=== PATIENT | female | born 1955 | race African-American/Black ===

== ENCOUNTER → 2016-04-14 | Day surgery (SDC) | payer MEDICAID ==
[~2016-04-14] VITALS: Ht 170.2 cm; Wt 67.0 kg
[~2016-04-14] MED LIST: ACETAMINOPHEN 1000 MG/100 ML VIAL IV ONE; ALEN1TAB48 PO; DEXAMETHASONE SOD PHOS 4 MG/ML VIAL ONE; FAMOTIDINE 20 MG/2 ML VIAL ONE; FORT600S SQ; LOSA100T3 PO; MIDAZOLAM HCL 2 MG/2 ML VIAL ONE; NIFE30TA8; NIFE30TA8 PO; ONDANSETRON HCL 4 MG/2 ML VIAL IV PUSH PRN; ONDANSETRON HCL 4 MG/2 ML VIAL ONE; PERC5TAB12 PO; PRAV40TA2 PO; PROPOFOL 200 MG/20 ML AMP IV ONE; TRAM50TA PO; ePHEDrine/NS 25 MG/5 ML SYR IV ONE; fentaNYL CITRATE 250 MCG/5 ML AMP ONE; oxyCODONE/ACETAMINOPHEN 5 MG/325 MG TAB PO PRN
[2016-04-14 06:35] VITALS: BP 154/86; PULSE 60; RESP 16; TEMP 97.6; O2SAT 99
[2016-04-14 07:25] LABS: HEMATOCRIT 36.8 % (35.0-46.0); HEMO FLAGS DIFF FINAL; MEAN CELL VOLUME 90.3 FL (80.0-100.0); MEAN CORPUSCULAR HGB CONC 33.2 % (32.0-36.0); PLATELET COUNT 135 TH/MM3 (150-450); RED BLOOD COUNT 4.07 MIL/MM3 (4.00-5.30); RED CELL DISTRIBUTION WIDTH 14.4 % (11.6-17.2); WHITE BLOOD COUNT 9.6 TH/MM3 (4.0-11.0)
[2016-04-14 07:26] LABS: AUTOMATED NEUTROPHIL # 5.5 TH/MM3 (1.8-7.7); BASOPHIL # 0.1 TH/MM3 (0-0.2); BASOPHIL % 0.6 % (0.0-2.0); EOSINOPHIL # 0.3 TH/MM3 (0-0.4); EOSINOPHIL % 2.9 % (0.0-4.0); LYMPH % 28.9 % (9.0-44.0); LYMPHOCYTE # 2.8 TH/MM3 (1.0-4.8); MONO % 10.3 % (0.0-8.0); NEUT % 57.3 % (16.0-70.0)
--- NOTE | 2016-04-14 08:14 | RADRPT ---
EXAM DATE/TIME: 04/14/2016 07:07 [facility] COMPARISON: No previous studies available for comparison. INDICATIONS: Pre-op left kidney stones. MEDICAL HISTORY: None. SURGICAL HISTORY: None. ENCOUNTER: Initial ACUITY: 1 day PAIN SCORE: 0/10 LOCATION: Left Abdomen. FINDINGS: There are at least two radiopaque densities overlying the expected region of the lower pole of the le ft kidney. The largest measures 10 mm consistent with probable non-obstructing left renal calculi. There is no bowel obstruction, ileus or perforation. No free intraperitoneal air is noted. Scoliosi s of the lumbar spine is noted. CONCLUSION: 1. At least two lower pole left renal calculi with the largest measuring 10 mm. 2. No bowel obstruction, ileus or perforation. 3. Scoliosis of the lumbar spine. Srikanth Menjivar MD on April 14, 2016 at 8:07 Board Certified Radiologist. This report was verified electronically.
--- NOTE | 2016-04-14 13:08 | HHI.PR ---
Immediate Post Op Note Procedure Date: Apr 14, 2016 Pre Op Diagnosis: Left lower pole renal calculi Post Op Diagnosis: Same Surgeon: Schuyler Dykes Clinical Review Nurse(s): None Procedure: Extracorporeal shockwave lithotripsy of left lower pole renal calculi Findings: Left lower pole renal calculi Additional Information: Indication for procedure: Case of a pleasant 60-year-old female with 2 left lower pole renal calculi measuring approximately 1 cm and 6 mm respectively seen on CT scanning. Patient presents today to undergo definitive management with shockwave lithotripsy. Procedure in detail: Patient was brought to the operating room suite and placed supine on the lithotripsy table. She was next placed under general anesthesia. After the appropriate timeout was undertaken, the patient's left lower pole renal calculi were localized with fluoroscopy. She then underwent shockwave lithotripsy utilizing the Wade Piezolith 3000 device. The patient received a total of 3000 shocks with a maximum power level of 20. At conclusion of the procedure the stones appeared somewhat outside sales manager in intensity consistent with at least partial fragmentation. The patient tolerated the procedure well and was transferred to the PACU in satisfactory condition. Anesthesia: General Drains: None Fluids: refer to anesthesia record Patient to: PACU Patient Condition: Good Date/Time of Procedure: SEE SURGICAL CARE RECORD Schuyler Dykes MD Apr 14, 2016 13:08
[2016-04-14 14:56] VITALS: BP 125/74; PULSE 56; RESP 20; TEMP 96.6; O2SAT 99
--- NOTE | 2016-04-14 18:33 | EKG ---
Date Performed: 04/14/2016 Time Performed: 06:59:40 PTAGE: 60 years EKG: SINUS BRADYCARDIA POSSIBLE LEFT ATRIAL ENLARGEMENT POSSIBLE LEFT VENTRICULAR HYPERTROPHY NO NSPECIFIC T-WAVE ABNORMALITY ABNORMAL ECG NO PREVIOUS TRACING DOCTOR: Marc Infante Interpretating Date/Time 04/14/2016 18:32:34
== END | disposition home or self-care (01) ==
LOC: HSDC 06:22
PROVIDERS: ATTEND Urology
DX: N20.0 Calculus of kidney (principal); M41.9 Scoliosis, unspecified; I10 Essential (primary) hypertension; E78.5 Hyperlipidemia, unspecified
CPT/HCPCS: 00873; 50590; 74000; 85025; 93005; J0131; J1100; J2250; J2405; J3010

== ENCOUNTER 2017-01-04 12:35 | Inpatient (IN) | payer MEDICAID ==
[~2017-01-04] VITALS: Ht 170.2 cm; Wt 64.4 kg
[~2017-01-04 12:35] MED LIST changes: -ACETAMINOPHEN 1000 MG/100 ML VIAL IV ONE; +CALC1TAB12 PO; -DEXAMETHASONE SOD PHOS 4 MG/ML VIAL ONE; -FAMOTIDINE 20 MG/2 ML VIAL ONE; -FORT600S SQ; -MIDAZOLAM HCL 2 MG/2 ML VIAL ONE; -NIFE30TA8; -ONDANSETRON HCL 4 MG/2 ML VIAL IV PUSH PRN; -ONDANSETRON HCL 4 MG/2 ML VIAL ONE; -PERC5TAB12 PO; -PROPOFOL 200 MG/20 ML AMP IV ONE; -ePHEDrine/NS 25 MG/5 ML SYR IV ONE; -fentaNYL CITRATE 250 MCG/5 ML AMP ONE; -oxyCODONE/ACETAMINOPHEN 5 MG/325 MG TAB PO PRN
--- NOTE | 2017-01-04 12:55 | PD.HP.UP ---
H&P Update Note The Pre-Admit History and Physical Examination regarding the above named patient was reviewed (including, but not limited to, vital signs, heart, lungs, co-morbid conditions), and upon re-examination it is noted that: the patient's condition has not significantly changed since the last examination. Ankush Jordan MD Jan 04, 2017 12:55
[2017-01-04] MEDS: DEXT 5%-NACL 0.9% 1000 ML INJ 1,000 ML IV SCH ×2 (14:00→21:57)
[2017-01-04] MEDS ORDERED: ALVIMOPAN 12 MG CAPSULE - On Call PO SCH (14:00)
[2017-01-04] MEDS ORDERED: INSULIN HUMAN REGULAR 1,000 UNITS/10 ML VIAL SQ PRN (14:00)
[2017-01-04] MEDS ORDERED: SODIUM CHLORID 0.9% 500 ML IV PRN (14:00)
[2017-01-04] MEDS ORDERED: METRONIDAZOLE 500 MG/100 ML ISONTONIC SOLN IV ONE (14:00)
[2017-01-04] MEDS ORDERED: POVIDONE IODINE 5% (ANTISEPSIS KIT) 4 APPLICATIONS EACH NARE PRN (14:00)
[2017-01-04] MEDS ORDERED: LACTATED RINGER'S 1000 ML IV PRN (14:00)
[2017-01-04] MEDS ORDERED: ceFAZolin 1,000 MG/NS 100 ML IV SCH ×2 (14:00)
[2017-01-04] MEDS ORDERED: CHLORHEXIDINE GLUCONATE 2 % 1 PACK (2 CLOTHS) TOPICAL PRN (14:00)
[2017-01-04] MEDS ORDERED: METOPROLOL TARTRATE 25 MG TAB PO PRN (14:00)
[2017-01-04] MEDS ORDERED: BUPIVACAINE HCL PF 0.5% 30 ML VIAL ONE ×5 (17:29→17:31)
[2017-01-04] MEDS ORDERED: BUPIVACAINE/EPINEPHRINE 0.25% 50 ML VIAL ONE (18:32)
[2017-01-04] MEDS ORDERED: DO NOT ADM ANY ANTICOAGULANT DRUGS PRN (18:50)
[2017-01-04] MEDS: D5-NS + KCL 20 MEQ INJ 1,000 ML IV SCH (18:50)
--- NOTE | 2017-01-04 18:57 | HHI.PR ---
Immediate Post Op Note Procedure Date: Jan 04, 2017 Pre Op Diagnosis: Tumor transv colon Post Op Diagnosis: prob cancer transverse colon Surgeon: Ankush Jordan [employer] Supervisor(s): René Procedure: Exploratory lap + extended rt colectomy Findings: sessile, hard tumor in transverse colon Complications: none Specimen(s) removed: Term ileum/rt colon/transv colon Estimated blood loss: 100cc Anesthesia: General Drains: None IVF Patient to: PACU Patient Condition: Good Ankush Jordan MD Jan 04, 2017 18:57
[2017-01-04] MEDS ORDERED: SODIUM CHLORIDE 0.9% FLUSH 5 ML FLUSH IVF PRN (19:00)
[2017-01-04] MEDS ORDERED: ONDANSETRON HCL 4 MG/2 ML VIAL IV PUSH PRN (19:00)
[2017-01-04] MEDS ORDERED: ENALAPRILAT 1.25 MG/ML VIAL IV PUSH PRN (19:00)
[2017-01-04] MEDS ORDERED: POTASSIUM CHLOR 40 MEQ PREMIX 100 ML IV PRN (19:00)
[2017-01-04] MEDS ORDERED: NALOXONE HCL 0.4 MG/ML AMP IV PUSH PRN ×2 (19:00→23:00)
[2017-01-04] MEDS ORDERED: ENALAPRILAT 2.5 MG/2 ML VIAL IV PUSH PRN (19:00)
[2017-01-04] MEDS ORDERED: BENZOCAINE 6 MG/MENTHOL 10 MG LOZENGE BUCCAL PRN (19:00)
[2017-01-04] MEDS ORDERED: ACETAMINOPHEN 325 MG TAB PO PRN (19:00)
[2017-01-04] MEDS ORDERED: KETOROLAC TROMETHAMINE 30 MG/ML (IVP) VIAL IVP PRN (19:00)
[2017-01-04] MEDS ORDERED: Post-op Orders (for Pharmacy) MISC XX ONE (19:00)
[2017-01-04] MEDS ORDERED: BUPIVACAINE HCL PF 0.5% 30 ML VIAL NB SCH (19:00)
[2017-01-04] MEDS ORDERED: POTASSIUM CHLOR 20 MEQ PREMIX 100 ML IV PRN (19:00)
[2017-01-04] MEDS ORDERED: MORPHINE SULFATE 30 MG/30 ML PCA IV SCH (19:00)
[2017-01-04] MEDS ORDERED: ACETAMINOPHEN/HYDROcodone 325 MG/5 MG TAB PO PRN (19:00)
[2017-01-04 20:21] VITALS: PULSE 58
[2017-01-04 20:33] VITALS: BP 156/91; PULSE 60; RESP 18; TEMP 98.5; O2SAT 98
[2017-01-04] MEDS: SODIUM CHLORIDE 0.9% FLUSH 5 ML FLUSH IVF SCH (21:00)
[2017-01-04] MEDS ORDERED: PCA - TOTAL MG MORPHINE DELIVERED PER SHIFT SCH (22:00)
[2017-01-04] MEDS: HYDROmorphone HCL PCA 6 MG/30 ML IV SCH (22:57)
[2017-01-04] MEDS: METOCLOPRAMIDE HCL 10 MG/2 ML VIAL IVS SCH (22:58)
[2017-01-05] VITALS (21 sets, daily range): BP systolic 135–165; BP diastolic 84–99; PULSE 54–81; RESP 14–18; TEMP 98.5–100; O2SAT 96–99
[2017-01-05] MEDS: metroNIDAZOLE 500 MG INJ 100 ML IV SCH ×3 (01:04→18:22)
[2017-01-05] MEDS: D5-NS + KCL 20 MEQ INJ 1,000 ML IV SCH ×3 (01:06→22:31)
[2017-01-05] MEDS: DEXT 5%-NACL 0.9% 1000 ML INJ 1,000 ML IV SCH (03:54)
[2017-01-05 06:28] LABS: AUTOMATED NEUTROPHIL # 16.4 TH/MM3 (1.8-7.7); BASOPHIL % 0.3 % (0.0-2.0); HEMATOCRIT 37.2 % (35.0-46.0); LYMPH % 5.9 % (9.0-44.0); LYMPHOCYTE # 1.1 TH/MM3 (1.0-4.8); MEAN CELL VOLUME 92.9 FL (80.0-100.0); MEAN CORPUSCULAR HGB CONC 32.3 % (32.0-36.0); MEAN PLATELET VOLUME 11.6 FL (7.0-11.0); MONO % 5.5 % (0.0-8.0); NEUT % 88.3 % (16.0-70.0); PLATELET COUNT 134 TH/MM3 (150-450); RED BLOOD COUNT 4.01 MIL/MM3 (4.00-5.30); RED CELL DISTRIBUTION WIDTH 14.2 % (11.6-17.2); WHITE BLOOD COUNT 18.5 TH/MM3 (4.0-11.0)
[2017-01-05 06:59] LABS: BICARBONATE 24.7 MEQ/L (21.0-32.0); CALCIUM 7.5 MG/DL (8.5-10.1); CREATININE 0.72 MG/DL (0.50-1.00)
--- NOTE | 2017-01-05 08:12 | HHI.PR ---
Subjective Remarks C/R Surg POD #1 afebrile, VSS UO good Objective - Vital Signs Date Time Temp Pulse Resp B/P (MAP) Pulse Ox O2 Delivery O2 Flow Rate FiO2 01/05/17 07:58 80 01/05/17 04:00 98.7 16 147/89 (108) 98 01/04/17 20:00 Room Air 01/04/17 19:31 2 Result Diagram: 01/05/17 0601 01/05/17 0601 Other Results PE alert Abd - soft, wound dry, min tympany A/P Assessment and Plan Imp: stable post-op OOB decr IVF tx to floor Ankush Jordan MD Jan 05, 2017 08:12
[2017-01-05] MEDS: PANTOPRAZOLE SOD 40 MG DELAYED RELEASE TAB PO SCH (08:19)
[2017-01-05] MEDS: METOCLOPRAMIDE HCL 10 MG/2 ML VIAL IVS SCH ×2 (08:19→20:57)
[2017-01-05] MEDS: SODIUM CHLORIDE 0.9% FLUSH 5 ML FLUSH IVF SCH ×2 (08:19→20:56)
[2017-01-05] MEDS: PANTOPRAZOLE SODIUM 40 MG VIAL IVP SCH (08:19)
[2017-01-05] MEDS: ALVIMOPAN 12 MG CAPSULE - Post-op dosing PO SCH ×2 (08:19→20:57)
[2017-01-05] MEDS: NIFEdipine 30 MG SUSTAINED RELEASE TAB PO SCH (09:32)
[2017-01-05] MEDS: PRAVASTATIN SOD 40 MG TAB PO SCH (09:32)
[2017-01-05] MEDS: HYDROCHLOROTHIAZIDE 25 MG TAB PO SCH (09:34)
[2017-01-05] MEDS: LOSARTAN 50 MG TAB PO SCH (09:34)
[2017-01-05] MEDS ORDERED: PILL SPLITTER OTHER PRN (09:45)
[2017-01-05] MEDS: HYDROmorphone HCL PCA 6 MG/30 ML IV SCH (10:57)
[2017-01-05] MEDS: PCA - TOTAL MG DILAUDID DELIVERED PER SHIFT SCH ×2 (13:56→22:00)
[2017-01-05] MEDS ORDERED: ALVIMOPAN 12 MG CAPSULE PO SCH (21:00)
[2017-01-06] VITALS (12 sets, daily range): BP systolic 131–170; BP diastolic 82–93; PULSE 58–80; RESP 16–18; TEMP 98.6–100.9; O2SAT 96–100
[2017-01-06 06:00] LABS: AUTOMATED NEUTROPHIL # 12.9 TH/MM3 (1.8-7.7); BASOPHIL % 0.1 % (0.0-2.0); EOSINOPHIL % 0.1 % (0.0-4.0); HEMATOCRIT 34.3 % (35.0-46.0); HEMOGLOBIN 11.1 GM/DL (11.6-15.3); LYMPH % 9.9 % (9.0-44.0); LYMPHOCYTE # 1.5 TH/MM3 (1.0-4.8); MEAN CELL VOLUME 92.7 FL (80.0-100.0); MEAN CORPUSCULAR HEMOGLOBIN 30.1 PG (27.0-34.0); MEAN CORPUSCULAR HGB CONC 32.5 % (32.0-36.0); MEAN PLATELET VOLUME 12.1 FL (7.0-11.0); MONO % 6.3 % (0.0-8.0); NEUT % 83.6 % (16.0-70.0); PLATELET COUNT 125 TH/MM3 (150-450); RED CELL DISTRIBUTION WIDTH 14.2 % (11.6-17.2); WHITE BLOOD COUNT 15.4 TH/MM3 (4.0-11.0)
[2017-01-06] MEDS: PCA - TOTAL MG DILAUDID DELIVERED PER SHIFT SCH (06:00)
[2017-01-06 06:23] LABS: BICARBONATE 25.7 MEQ/L (21.0-32.0); CREATININE 0.65 MG/DL (0.50-1.00)
--- NOTE | 2017-01-06 07:31 | HHI.PR ---
Subjective Remarks C/R Surg POD #2 afebrile, VSS UO good Objective - Vital Signs Date Time Temp Pulse Resp B/P (MAP) Pulse Ox O2 Delivery O2 Flow Rate FiO2 01/06/17 06:00 18 01/06/17 06:00 62 01/06/17 03:00 98.8 145/82 (103) 100 01/04/17 20:00 Room Air 01/04/17 19:31 2 Result Diagram: 01/06/17 0503 01/06/17 0503 Objective Remarks PE alert Abd - soft, wound dry, +flatus A/P Assessment and Plan Imp: OOB decr IVF start PO dc octavio tx to floor Ankush Jordan MD Jan 06, 2017 07:31
[2017-01-06] MEDS ORDERED: METOCLOPRAMIDE HCL 10 MG/2 ML VIAL IVS PRN (07:45)
[2017-01-06] MEDS: PANTOPRAZOLE SOD 40 MG DELAYED RELEASE TAB PO SCH (08:46)
[2017-01-06] MEDS: D5-NS + KCL 20 MEQ INJ 1,000 ML IV SCH ×2 (08:46→12:08)
[2017-01-06] MEDS: LOSARTAN 50 MG TAB PO SCH (08:47)
[2017-01-06] MEDS: HYDROCHLOROTHIAZIDE 25 MG TAB PO SCH (08:47)
[2017-01-06] MEDS: NIFEdipine 30 MG SUSTAINED RELEASE TAB PO SCH (08:47)
[2017-01-06] MEDS: PRAVASTATIN SOD 40 MG TAB PO SCH (08:48)
[2017-01-06] MEDS: ALVIMOPAN 12 MG CAPSULE - Post-op dosing PO SCH ×2 (08:48→21:31)
[2017-01-06] MEDS: PANTOPRAZOLE SODIUM 40 MG VIAL IVP SCH (09:00)
--- NOTE | 2017-01-06 10:00 | MP ---
cc: ANUP FLANAGAN M.D. DATE OF SURGERY January 04, 2017 PREOPERATIVE DIAGNOSIS Sessile tumor of the transverse colon. PROCEDURE Exploratory laparotomy with extended right hemicolectomy. 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 SURGEON Dr. Flanagan PHYSICIAN ASSISTANT SURGERY Dr. Vinny Merritt PROCEDURE The patient was placed in the supine position. After adequate general anesthesia her legs were placed in [place] stirrups and supported appropriately. The abdomen and perineum were then prepped with Betadine solution and draped in the usual sterile fashion. With Dr. Merritt's assistance the abdomen was opened through an infraumbilical transverse incision dividing the rectus muscles with electrocautery. Exploration revealed rather tortuous, redundant colon which was twisted and stuck down in the pelvis against the mesentery from the small bowel. These adhesions were sharply divided, freeing up the sigmoid colon. The colon was then examined more proximally and the area of the left side of the transverse colon was noted to have a tattoo and a palpable tumor at that spot consistent with the previously seen colonic polyp. The proximal bowel was also very redundant over towards the cecum but was felt to be pretty unremarkable. The liver and gallbladder were unremarkable. The stomach and duodenum were normal. The uterus and ovaries were surgically absent. The great vessels were of normal caliber and minimally calcified. First the right colon was mobilized medially by dividing along the white line of Toldt. The right ureter was identified and carefully preserved. Dissection then proceeded up the right gutter taking down attachments to the hepatic flexure, entering the lesser sac and taking the gastrocolic omentum off the transverse colon. The bowel was fully mobilized including the splenic flexure to get length to perform the resection. After complete mobilization the bowel was divided in the left side of the transverse colon distal to the palpable tumor with the LETICIA stapling device. The middle colic vessels, right colic vessels and ileocolic vessels were taken between Aurelia's obtaining hemostasis with Vicryl ties. The bowel was then divided in the terminal ileum using the LETICIA stapling device. Major vascular pedicles were ligated with Vicryl ties. The specimen was removed. Bowel continuity was then restored by firing the LETICIA stapler across the antimesenteric ends of the bowel, closing the enterotomy with a TA60 stapler. The mesenteric defect was closed with a running Vicryl suture and a 3-0 Vicryl crotch suture was placed. The abdomen was then irrigated copiously with normal saline, adequate hemostasis achieved at all sites. The transverse incision was closed anatomically in two layers using #1 PDS sutures to reapproximate the respective fascial layers. On-Q catheters were placed into the rectus sheath on both sides and brought up through subcutaneous tunnels above the transverse incision. The subcu tissue was irrigated copiously and the skin closed with a running subcuticular Vicryl suture. The wound area was washed with normal saline and dried, sterile dressing of Telfa and gauze applied. The patient tolerated the procedure quite well and was brought to recovery room in stable condition. Sponge and needle counts were correct at the end of procedure. MD ESTUARDO Coyne/DENNIS /10:43 PM /9:52 AM
[2017-01-06] MEDS: SODIUM CHLORIDE 0.9% FLUSH 5 ML FLUSH IVF SCH ×2 (10:07→21:00)
[2017-01-06] MEDS: ACETAMINOPHEN/HYDROcodone 325 MG/5 MG TAB PO PRN ×2 (18:07→22:51)
[2017-01-07] MEDS: D5-NS + KCL 20 MEQ INJ 1,000 ML IV SCH (04:11)
[2017-01-07] MEDS ORDERED: PRAV40TA2 PO (07:14)
[2017-01-07] MEDS: PRAVASTATIN SOD 40 MG TAB PO SCH (07:53)
[2017-01-07] MEDS: ALVIMOPAN 12 MG CAPSULE - Post-op dosing PO SCH (07:53)
[2017-01-07] MEDS: NIFEdipine 30 MG SUSTAINED RELEASE TAB PO SCH (07:53)
[2017-01-07] MEDS: LOSARTAN 50 MG TAB PO SCH (07:53)
[2017-01-07] MEDS: PANTOPRAZOLE SOD 40 MG DELAYED RELEASE TAB PO SCH (07:53)
[2017-01-07] MEDS: HYDROCHLOROTHIAZIDE 25 MG TAB PO SCH (07:54)
[2017-01-07] MEDS: SODIUM CHLORIDE 0.9% FLUSH 5 ML FLUSH IVF SCH (07:54)
[2017-01-07] MEDS: PANTOPRAZOLE SODIUM 40 MG VIAL IVP SCH (07:54)
[2017-01-07 08:00] VITALS: BP 168/99; PULSE 82; RESP 16; TEMP 98.8; O2SAT 99
[2017-01-07 12:00] VITALS: BP 151/109; PULSE 98; RESP 17; TEMP 98.2; O2SAT 99
[2017-01-07] MEDS ORDERED: HYDR-3516 PO (17:02)
--- NOTE | 2017-01-07 17:04 | HHI.PR ---
Subjective Remarks C/R Surg POD #3 afebrile, VSS UO good +BM Objective - Vital Signs Date Time Temp Pulse Resp B/P (MAP) Pulse Ox O2 Delivery O2 Flow Rate FiO2 01/07/17 12:00 98.2 98 17 151/109 (123) 99 01/04/17 20:00 Room Air 01/04/17 19:31 2 Result Diagram: 01/06/17 0503 01/06/17 0503 Objective Remarks PE alert Abd - soft, wound dry, +flatus A/P Assessment and Plan Imp: OOB decr IVF start PO reg diet dc plans Ankush Jordan MD Jan 07, 2017 17:04
== END 2017-01-07 18:41 | disposition home or self-care (01) | DRG 331 ==
LOC: HSDI 12:35 → HCIN 20:14 → N07B 01-06 13:45
PROVIDERS: ADMIT Colon & Rectal Surgery; ATTEND Colon & Rectal Surgery
PROC: 0DTF0ZZ Resection of Right Large Intestine, Open Approach (ICD-10-PCS; 2017-01-04)
PROC: 0DBL0ZZ Excision of Transverse Colon, Open Approach (ICD-10-PCS; principal; 2017-01-04 16:48)
DX: C18.4 Malignant neoplasm of transverse colon (principal); I10 Essential (primary) hypertension; E78.5 Hyperlipidemia, unspecified
CPT/HCPCS: 80048; 85025; 86850; 86900; 86901; 88309; 94150; J0690; J1170; J1885; J2270; J2765; J3480; J7120

== ENCOUNTER → 2017-06-15 | Day surgery (SDC) | payer MEDICAID ==
[~2017-06-15] VITALS: Ht 170.2 cm; Wt 65.5 kg
[~2017-06-15] MED LIST changes: -CALC1TAB12 PO; +CHLORHEXIDINE GLUCONATE 2 % 1 PACK (2 CLOTHS) TOPICAL PRN; +DO NOT ADM ANY ANTICOAGULANT DRUGS PRN; +LACTATED RINGER'S 1000 ML IV PRN; +LIDOCAINE HCL 1% PF 5 ML SYRINGE OTHER ONE; +METOPROLOL TARTRATE 25 MG TAB PO PRN; +ONDANSETRON HCL 4 MG/2 ML VIAL IV ONE; +ONDANSETRON HCL 4 MG/2 ML VIAL IV PUSH PRN; +PERC5TAB12 PO; +POVIDONE IODINE 5% (ANTISEPSIS KIT) 4 APPLICATIONS EACH NARE PRN; +PROPOFOL 200 MG/20 ML AMP IV ONE; +SODIUM CHLORID 0.9% 500 ML IV PRN; +ePHEDrine/NS 25 MG/5 ML SYRINGE IV ONE; +oxyCODONE/ACETAMINOPHEN 5 MG/325 MG TAB PO PRN
[2017-06-15 09:19] LABS: AUTOMATED NEUTROPHIL # 5.5 TH/MM3 (1.8-7.7); BASOPHIL # 0.1 TH/MM3 (0-0.2); BASOPHIL % 0.6 % (0.0-2.0); EOSINOPHIL # 0.3 TH/MM3 (0-0.4); EOSINOPHIL % 3.5 % (0.0-4.0); HEMATOCRIT 37.4 % (35.0-46.0); HEMOGLOBIN 12.3 GM/DL (11.6-15.3); LYMPH % 27.3 % (9.0-44.0); LYMPHOCYTE # 2.5 TH/MM3 (1.0-4.8); MEAN CELL VOLUME 91.9 FL (80.0-100.0); MEAN CORPUSCULAR HEMOGLOBIN 30.1 PG (27.0-34.0); MEAN CORPUSCULAR HGB CONC 32.8 % (32.0-36.0); MEAN PLATELET VOLUME 11.2 FL (7.0-11.0); MONO % 7.2 % (0.0-8.0); MONOCYTE # 0.6 TH/MM3 (0-0.9); NEUT % 61.4 % (16.0-70.0); PLATELET COUNT 158 TH/MM3 (150-450); RED BLOOD COUNT 4.07 MIL/MM3 (4.00-5.30); RED CELL DISTRIBUTION WIDTH 14.7 % (11.6-17.2)
--- NOTE | 2017-06-15 10:19 | RADRPT ---
EXAM DATE/TIME: 06/15/2017 09:13 [facility] COMPARISON: ABDOMEN KUB ONLY, April 14, 2016, 7:07. INDICATIONS : Evaluate left kidney stone. Pre op left lithotripsy. MEDICAL HISTORY : None. SURGICAL HISTORY : None. ENCOUNTER: Initial ACUITY: 1 day PAIN SCORE: 4/10 LOCATION: Left Abdomen. FINDINGS: There is an 11 mm left renal stone. Scoliosis of the lumbar spine is noted. No bowel obstruction or i leus is noted. CONCLUSION: 11 mm left renal stone. Scoliosis of the lumbar spine. No bowel obstruction or ileus. Srikanth Menjivar MD on June 15, 2017 at 10:15 Board Certified Radiologist. This report was verified electronically.
--- NOTE | 2017-06-15 11:13 | PD.OP ---
Operative Report Date of Surgery: Jun 15, 2017 Preoperative Diagnosis: (1) Renal calculus, left Postoperative Diagnosis: (1) Renal calculus, left Procedure: Extracorporeal shockwave lithotripsy left renal calculus Anesthesia: General Surgeon: Schuyler Dykes Mattress Stripper(s): None Operation and Findings: Indication for procedure: Case of a pleasant 61-year-old female with an approximately 8 mm left lower pole renal calculus who presents today to undergo shockwave lithotripsy. Patient also has several additional smaller stones involving the lower pole as well which will be managed conservatively. Operative procedure in detail: Patient was brought to the operating room suite and placed supine on the lithotripsy table. She was then placed under general anesthesia. After appropriate timeout was undertaken I proceeded with localizing the patient's 8 mm left lower pole renal calculus with fluoroscopy. The patient separately received extracorporeal shockwave lithotripsy utilizing the Dornier mobile lithotripsy device. She received a total of 3000 shocks with a maximum power level setting of 6. At the conclusion of the procedure the stone was still intact but spread out consistent with at least some degree of fragmentation. She tolerated the procedure without complications and was transferred to the PACU in satisfactory condition. Schuyler Dykes MD Jun 15, 2017 11:13
[2017-06-15 12:45] VITALS: BP 122/78; PULSE 56; RESP 18; TEMP 97.3; O2SAT 99
--- NOTE | 2017-06-15 20:49 | EKG ---
Date Performed: 06/15/2017 Time Performed: 09:48:24 PTAGE: 61 years EKG: SINUS BRADYCARDIA MODERATE T-WAVE ABNORMALITY, CONSIDER LATERAL ISCHEMIA ABNORMAL ECG PREVIOUS TRACING : 04/14/2016 06.59 Since the previous tracing, no significant change noted DOCTOR: Zach Miller Interpretating Date/Time 06/15/2017 20:47:24
== END | disposition home or self-care (01) ==
LOC: HSDC 08:14
PROVIDERS: ATTEND Urology
DX: N20.0 Calculus of kidney (principal); I10 Essential (primary) hypertension; C18.4 Malignant neoplasm of transverse colon; M81.0 Age-related osteoporosis without current pathological fracture; R01.1 Cardiac murmur, unspecified; M54.9 Dorsalgia, unspecified; Z01.818 Encounter for other preprocedural examination; Z01.810 Encounter for preprocedural cardiovascular examination
CPT/HCPCS: 00872; 50590; 74018; 85025; 93005; J2405; J3010; J7120